=== PATIENT | male | born 1995 | race Hispanic/Latino ===

== ENCOUNTER 2022-02-22 12:13 | Emergency (ER) | payer SELFPAY ==
[2022-02-22] MEDS ORDERED: NA CHLORIDE 0.9% 1,000 ML ONE (12:39)
[2022-02-22] MEDS ORDERED: FAMOTIDINE 20 MG/2 ML VIAL IV ONE (12:39)
[2022-02-22] MEDS ORDERED: METHYLPREDNISOLONE 125 MG INJ ONE (12:39)
--- NOTE | 2022-02-22 15:24 | ER ---
Nurse's Notes 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 ss Coronavirus screen: Client denies travel out of the [place] in the last 14 days. Ebola Screen: Patient denies exposure to infectious person. Patient denies travel to an Ebola-affected area in the 21 days before illness onset. Onset: The symptoms/episode began/occurred acutely. Anaphylaxis evaluation, no signs or symptoms of anaphylaxis were noted. Initial Sepsis Screen: Does the patient meet any 2 criteria? No. Patient's initial sepsis screen is negative. Does the patient have a suspected source of infection? No. Patient's initial sepsis screen is negative. Risk Assessment: Do you want to hurt yourself or someone else? Patient reports no desire to harm self or others. Onset of symptoms was February 22, 2022. Care prior to arrival: Medication(s) given: Normal saline infusion, 250 mL 12.5 mg Benadryl IM and additional 12.5 mg Benadryl given IVP. IV initiated. 20 GA, in the left antecubital area. 12:20 Method Of Arrival: EMS: [facility] 12:20 Acuity: FABI 2 ss Triage Assessment: 12:30 General: Appears distressed, uncomfortable, Behavior is cooperative, appropriate for bp age, anxious. Pain: Complains of pain in GLOBAL. EENT: No deficits noted. Neuro: No deficits noted. Cardiovascular: No deficits noted. Respiratory: No deficits noted. GI: No signs and/or symptoms were reported involving the gastrointestinal system. : No signs and/or symptoms were reported regarding the genitourinary system. Derm: No signs and/or symptoms reported regarding the dermatologic system. Musculoskeletal: No deficits noted. Historical: - Allergies: 12:24 No Known Allergies; ss - Home Meds: 12:24 None [Active]; ss - PMHx: 12:24 None; ss - PSHx: 12:24 None; ss - Immunization history:: Client reports having NOT received the Covid vaccine. - Social history:: Smoking status: Patient denies any tobacco usage or history of. - Family history:: not pertinent. - Hospitalizations: : No recent hospitalization is reported. Screenin:30 Abuse screen: Denies threats or abuse. Denies injuries from another. Nutritional bp screening: No deficits noted. Tuberculosis screening: No symptoms or risk factors identified. Fall Risk None identified. Assessment: 12:25 General: Appears uncomfortable, Behavior is calm, cooperative, Denies fever, feeling ss ill. Pain: Complains of pain in "all over" Pain currently is 9 out of 10 on a pain scale. Quality of pain is described as tender, Pain began suddenly, Is continuous. 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 Cardiovascular: Capillary refill < 3 seconds is brisk in bilateral fingers. Respiratory: Airway is patent Trachea midline Respiratory effort is even, unlabored, Respiratory pattern is regular, symmetrical, Breath sounds are clear bilaterally. Denies cough, shortness of breath. GI: Patient currently denies diarrhea, nausea, vomiting. : No signs and/or symptoms were reported regarding the genitourinary system. EENT: Oral mucosa is moist. Throat is clear. Derm: Skin is intact, is healthy with good turgor, Skin is dry, Skin is pink, warm \\T\\ dry. normal. Musculoskeletal: Circulation, motion, and sensation intact. Range of motion: intact in all extremities, Swelling absent. 14:30 Reassessment: No changes from previously documented assessment. Patient and/or family bp updated on plan of care and expected duration. Pain level reassessed. 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 bp Vital Signs: 12:20 BP 116 / 72; Pulse 67; Resp 17; Temp 98.1(TE); Pulse Ox 98% on R/A; Weight 63.5 kg; ss Height 5 ft. 2 in. (160 cm); Pain 9/10; 13:30 BP 108 / 82; Pulse 51; Resp 16; Pulse Ox 100% ; bp 14:30 BP 117 / 72; Pulse 63; Resp 16; Pulse Ox 100% ; bp 15:31 BP 110 / 75; Pulse 58; Resp 16; Temp 98.1; Pulse Ox 98% ; bp 12:20 Body Mass Index 24.81 (63.50 kg, 160 cm) ED Course: 12:20 Patient arrived in ED. ss 12:22 Beny Marques MD is Attending Physician. rn 12:24 Triage completed. ss 12:24 Arm band placed on right wrist. ss 12:30 Patient has correct armband on for positive identification. Bed in low position. Call bp light in reach. Side rails up X2. Adult w/ patient. 12:30 Maintain EMS IV. Dressing intact. Good blood return noted. Site clean \\T\\ dry. Gauge \\T\\ bp site: 20 G LEFT AC. 12:34 Manuel Sands, RN is Primary Nurse. bp 15:31 No provider procedures requiring assistance completed. IV discontinued, intact, bp bleeding controlled, No redness/swelling at site. Pressure dressing applied. Administered Medications: 12:37 Drug: Pepcid (famotidine) 20 mg Route: IVP; Site: left antecubital; ss 15:32 Follow up: Response: No adverse reaction bp 12:41 Drug: SOLU-Medrol (methylPrednisoLONE) 125 mg Route: IVP; Site: left antecubital; ss 15:32 Follow up: Response: No adverse reaction bp 12:41 Drug: NS 0.9% 1000 ml Route: IV; Rate: 1000 ml; Site: left antecubital; ss 15:33 Follow up: IV Status: Completed infusion; IV Intake: 1000ml bp Medication: 12:25 VIS not applicable for this client. ss Intake: 15:33 IV: 1000ml; Total: 1000ml. bp Outcome: 15:23 Discharge ordered by . rn 15:31 Discharged to home ambulatory, with friend. bp 15:31 Condition: stable 15:31 Discharge instructions given to patient, Instructed on discharge instructions, follow up and referral plans. medication usage, Demonstrated understanding of instructions, follow-up care, medications, Prescriptions given X 1. 15:33 Patient left the ED. bp Signatures: Beny Marques MD MD rn Smirch, Shelby, RN RN Manuel Sands, CASPER RN bp
--- NOTE | 2022-02-22 15:24 | EDPHYS ---
Physician Documentation [facility] Name: Randall Shah Age: 26 yrs Sex: Male : 1995 Arrival Date: 02/22/2022 Time: 12:20 Bed 5 Private MD: ED Physician Beny Marques HPI: 02/22 13:09 This 26 yrs old Male presents to ER via EMS with complaints of Bee Sting. rn 13:09 The patient presents with itching, redness of skin. Onset: The symptoms/episode rn began/occurred just prior to arrival. Associated signs and symptoms: Pertinent positives: headache, hives, rash, Pertinent negatives: abdominal pain, fever, shortness of breath, Syncope. Possible causes: bees. At home the patient or guardian has treated the symptoms with nothing. Severity of symptoms: At their worst the symptoms were moderate in the emergency department the symptoms have improved. The patient has not experienced similar symptoms in the past. The patient has not recently seen a physician. 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 Given benadryl by EMS with improvement. No sob. + headache currently but feels much better.. Historical: - Allergies: 12:24 No Known Allergies; ss - Home Meds: 12:24 None [Active]; ss - PMHx: 12:24 None; ss - PSHx: 12:24 None; ss - Immunization history:: Client reports having NOT received the Covid vaccine. - Social history:: Smoking status: Patient denies any tobacco usage or history of. - Family history:: not pertinent. - Hospitalizations: : No recent hospitalization is reported. ROS: 13:09 Constitutional: Negative for fever, chills, and weight loss, Eyes: Negative for injury, rn pain, redness, and discharge, Neck: Negative for injury, pain, and swelling, Cardiovascular: Negative for chest pain, palpitations, and edema, Respiratory: Negative for shortness of breath, cough, wheezing, and pleuritic chest pain, Abdomen/GI: Negative for abdominal pain, nausea, vomiting, diarrhea, and constipation, Back: Negative for injury and pain, MS/Extremity: Negative for injury and deformity, Skin: + redness and rash to skin Neuro: Negative for weakness, numbness, tingling, and seizure. Exam: 13:09 Constitutional: This is a well developed, well nourished patient who is awake, alert, rn and in no acute distress. Head/Face: Normocephalic, atraumatic. Eyes: Periorbital areas with no swelling, redness, or edema. ENT: NO oral swelling or stridor. Cardiovascular: Regular rate and rhythm. No pulse deficits. Respiratory: No increased work of breathing, no retractions or nasal flaring. Abdomen/GI: Soft, non-tender Skin: + mild erythema of skin diffusely with blanching skin MS/ Extremity: Pulses equal, no cyanosis. Neuro: Awake and alert, GCS 15 Vital Signs: 12:20 BP 116 / 72; Pulse 67; Resp 17; Temp 98.1(TE); Pulse Ox 98% on R/A; Weight 63.5 kg; ss Height 5 ft. 2 in. (160 cm); Pain 9/10; 13:30 BP 108 / 82; Pulse 51; Resp 16; Pulse Ox 100% ; bp 14:30 BP 117 / 72; Pulse 63; Resp 16; Pulse Ox 100% ; bp 15:31 BP 110 / 75; Pulse 58; Resp 16; Temp 98.1; Pulse Ox 98% ; bp 12:20 Body Mass Index 24.81 (63.50 kg, 160 cm) ss MDM: 12:22 Patient medically screened. rn 15:22 Differential diagnosis: anaphylaxis, Mastocystosis urticaria, acute allergic reaction. rn Data reviewed: vital signs, nurses notes, and as a result, I will discharge patient. Counseling: I had a detailed discussion with the patient and/or guardian regarding: the historical points, exam findings, and any diagnostic results supporting the discharge/admit diagnosis, the need for outpatient follow up, to return to the emergency department if symptoms worsen or persist or if there are any questions or concerns that arise at home. Special discussion: I discussed with the patient/guardian in detail that at this point there is no indication for admission to the hospital. It is understood, however, that if the symptoms persist or worsen the patient needs to return immediately for re-evaluation. ED course: Pt back to baseline, observed for 3 hours, no itching/sob/swelling. No angioedema. will dc home with steroids and return precautions.. 02/22 12:26 Order name: IV Start; Complete Time: 12:36 rn Administered Medications: 12:37 Drug: Pepcid (famotidine) 20 mg Route: IVP; Site: left antecubital; ss 15:32 Follow up: Response: No adverse reaction bp 12:41 Drug: SOLU-Medrol (methylPrednisoLONE) 125 mg Route: IVP; Site: left antecubital; ss 15:32 Follow up: Response: No adverse reaction bp 12:41 Drug: NS 0.9% 1000 ml Route: IV; Rate: 1000 ml; Site: left antecubital; ss 15:33 Follow up: IV Status: Completed infusion; IV Intake: 1000ml bp Disposition Summary: 02/22/22 15:23 Discharge Ordered Location: Home rn Problem: new rn Symptoms: have improved rn Condition: Stable rn Diagnosis - Toxic effect of venom of bees, accidental (unintentional) rn Followup: rn - With: Private Physician - When: As needed - Reason: Recheck today's complaints, Re-evaluation by your physician Discharge Instructions: - Discharge Summary Sheet rn - Bee, Wasp, or Hornet Sting, Adult rn Forms: - Medication Reconciliation Form rn - Thank You Letter rn - 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 - Prescription Opioid Use rn Prescriptions: - Prednisone 20 mg Oral Tablet - take 3 tablets by ORAL route once daily for 5 days; 15 tablet; Refills: 0, rn Product Selection Permitted Signatures: Beny Marques MD MD rn Smirch, Shelby, RN RN ss Peltier, Brian RN bp Corrections: (The following items were deleted from the chart) 13:12 13:09 Constitutional: Negative for fever, chills, and weight loss, Eyes: Negative for rn injury, pain, redness, and discharge, Neck: Negative for injury, pain, and swelling, Cardiovascular: Negative for chest pain, palpitations, and edema, Respiratory: Negative for shortness of breath, cough, wheezing, and pleuritic chest pain, Abdomen/GI: Negative for abdominal pain, nausea, vomiting, diarrhea, and constipation, Back: Negative for injury and pain, MS/Extremity: Negative for injury and deformity, Skin: + redness and rash to skin Neuro: Negative for headache, weakness, numbness, tingling, and seizure, rn
[2022-02-22 16:18] VITALS: TEMP 98.1
[2022-02-22 16:23] VITALS: BP 110/75; O2SAT 98
== END 2022-02-22 15:33 | disposition home or self-care (01) ==
LOC: ER 12:13
DX: T63.441A Toxic effect of venom of bees, accidental (unintentional), initial encounter (principal); R51.9 Headache, unspecified; L50.9 Urticaria, unspecified
CPT/HCPCS: J2930; J3490; J7030